=== PATIENT | male | born 1985 | race African-American/Black ===

== ENCOUNTER 2021-06-14 16:10 | Emergency (ER) | payer MEDICAID, OTHER ==
[~2021-06-14] VITALS: Ht 170.2 cm; Wt 83.5 kg
[~2021-06-14 16:10] MED LIST: TEGRETOL
--- NOTE | 2021-06-14 16:15 | NUR ---
Extra warm blankets on. Comfort and safety measures maintained.
[2021-06-14] MEDS ORDERED: CARB200T PO ×2 (16:25→19:56)
--- NOTE | 2021-06-14 16:33 | NUR ---
[email or web address], medical screening exam in progress.
[2021-06-14 16:52] LABS: HEMATOCRIT 42.4 % (36.7-47.1); MEAN CORPUSCULAR HEMOGLOBIN 34.3 uug (23.8-33.4); MEAN CORPUSCULAR VOLUME 99.2 fL (73.0-96.2); PLATELET COUNT (AUTO) 247 K/uL (152-348)
[2021-06-14 17:02] LABS: ETHANOL < 3 MG/DL (0-0)
[2021-06-14 17:11] LABS: CARBON DIOXIDE 22 mmol/L (21-32); CHLORIDE 98 mmol/L (98-107); CREATININE 1.5 mg/dL (0.6-1.3); GLUCOSE 137 mg/dL (74-106); POTASSIUM 3.5 mmol/L (3.5-5.1); UREA NITROGEN, BLOOD 15 mg/dL (7-18)
[2021-06-14 17:17] LABS: ALANINE AMINOTRANSFERASE 18 U/L (16-63); ALKALINE PHOSPHATASE 71 U/L (50-136); ASPARTATE AMINOTRANSFERASE 18 U/L (15-37); BILIRUBIN,DIRECT 0.2 mg/dL (0.0-0.2); BILIRUBIN,TOTAL 0.4 mg/dL (0.2-1.0); TOTAL PROTEIN, SERUM 7.8 g/dL (6.4-8.2)
[2021-06-14] MEDS ORDERED: CARBAMAZEPINE 200 MG TABLET PO ONE (17:30)
[2021-06-14] MEDS ORDERED: CARBAMAZEPINE 200 MG TABLET ONE (17:46)
[2021-06-14] MEDS ORDERED: AZITHROMYCIN 250 MG TABLET PO ONE (18:00)
[2021-06-14] MEDS ORDERED: CEFTRIAXONE 500 MG VIAL IM ONE (18:00)
[2021-06-14 18:13] LABS: *AMPHETAMINE, URINE POSITIVE (NEGATIVE); *CANNABINOID, URINE POSITIVE (NEGATIVE); *COCCAINE, URINE POSITIVE (NEGATIVE); *OPIATE, URINE NEGATIVE (NEGATIVE); *PHENCYCLIDINE SCREEN,URINE NEGATIVE (NEGATIVE)
[2021-06-14] MEDS ORDERED: LIDOCAINE HCL 1% 20 ML VIAL ONE (18:21)
[2021-06-14] MEDS ORDERED: CEFTRIAXONE 500 MG VIAL ONE (18:22)
[2021-06-14] MEDS ORDERED: AZITHROMYCIN 250 MG TABLET ONE (18:22)
--- NOTE | 2021-06-14 18:46 | NUR ---
Patient is resting comfortably on [place]udson, [facility], he is intermittently seen using his personal electronic device, for results and disposition.
--- NOTE | 2021-06-14 19:15 | NUR ---
SBAR to 7pm nurse Gomes, still for disposition, NAD, no seizure activity seen since arrival to ER.
--- NOTE | 2021-06-14 19:18 | NUR ---
pt a/o jacobies, Dr. Guevara at bedside speaking with pt.
--- NOTE | 2021-06-14 20:08 | NUR ---
Patient discharged to home in stable condition. Written and verbal after care instructions given. Patient verbalizes understanding of instructions. Stressed follow up or return to ER for worsening s/s. pt ambulatory with steady gait, denies pain.
[2021-06-14 20:09] VITALS: BP 135/80
[2021-06-17 08:06] LABS: *GC NAA Negative (Negative)
[2021-06-18 08:06] LABS: *TRIC.VAG. NAA Negative (Negative)
== END 2021-06-14 20:10 | disposition home or self-care (01) ==
LOC: ER 16:46
DX: R56.9 Unspecified convulsions (principal); F17.210 Nicotine dependence, cigarettes, uncomplicated; Z79.899 Other long term (current) drug therapy
CPT/HCPCS: 36415; 80048; 80076; 80156; 80307; 80320; 85025; 87491; 96372; 99283; J0696; J3490; A4663; G0480; Q0144